=== PATIENT | male | born 1945 | race Caucasian/White ===

== ENCOUNTER 2019-10-04 10:49 | Outpatient (CLI) | payer OTHER | END 2019-10-04 13:45 | disposition home or self-care (01) | LOC: EDBD 10:49 → SONOGRAMA 10:49 → MAMO-SONO 11:15 → SONOGRAMA 13:45 | DX: K76.0 Fatty (change of) liver, not elsewhere classified (principal); R16.0 Hepatomegaly, not elsewhere classified; I10 Essential (primary) hypertension ==

== ENCOUNTER 2021-10-29 08:00 | Outpatient (CLI) | payer OTHER | END 2021-10-29 08:30 | disposition home or self-care (01) | LOC: PPH VACUNA 08:00 | PROVIDERS: ATTEND Emergency Medicine Pediatric Emergency Medicine | DX: Z23 Encounter for immunization (principal) ==

== ENCOUNTER 2021-12-06 11:55 | Outpatient (CLI) | payer OTHER | END 2021-12-06 11:57 | disposition home or self-care (01) | LOC: SONOGRAMA 11:55 | PROVIDERS: ATTEND Pathology Anatomic Pathology & Clinical Pathology | DX: R59.0 Localized enlarged lymph nodes (principal) ==

== ENCOUNTER 2022-01-03 08:12 | Outpatient (CLI) | payer OTHER | END 2022-01-03 08:15 | disposition home or self-care (01) | LOC: SONOGRAMA 08:12 | PROVIDERS: ATTEND Pathology Anatomic Pathology & Clinical Pathology | DX: D02.20 Carcinoma in situ of unspecified bronchus and lung (principal); R59.0 Localized enlarged lymph nodes ==

== ENCOUNTER 2022-05-23 12:30 | Outpatient (CLI) | payer OTHER | END 2022-05-23 12:40 | disposition home or self-care (01) | LOC: PPH VACUNA 12:30 | PROVIDERS: ATTEND Emergency Medicine Pediatric Emergency Medicine | DX: Z23 Encounter for immunization (principal) ==